=== PATIENT | male | born 1955 | race Caucasian/White ===

== ENCOUNTER 2022-03-29 19:12 | Emergency (ER) | payer MEDICAID ==
[2022-03-29] MEDS ORDERED: Aspirin Chewable 81 MG TAB ONE (19:39)
[2022-03-29 19:58] LABS: #Eosinphils 0.1 10x3/uL (0.0-0.5); #Monocytes 0.5 10x3/uL (0.0-1.1); #Neutrophils 3.6 10x3/uL (1.5-8.4); %Basophils 0.6 % (0.0-2.0); %Eosinophils 2.3 % (0.0-6.0); %Lymphocytes 29.4 % (18.0-47.0); %Monocytes 8.6 % (0.0-10.0); %Neutrophils 58.8 % (40.0-75.0); Hemoglobin 14.6 g/dL (13.5-17.5); Mean Corpuscular HGB CONC 34.8 g/dL (32.0-36.0); Mean Corpuscular Hemoglobin 30.8 pg (27.0-33.0); Mean Corpuscular Volume 88.4 fl (81.2-95.1); Mean Platelet Volume 8.3 fl (7.4-10.4); Platelet Count 268 10x3/uL (150-450); RBC Distribution Width 12.2 % (11.5-14.5); Red Blood Cell (RBC) Count 4.74 10x6/uL (4.32-5.72); White Blood Cell (WBC) Count 6.2 10x3/uL (3.5-10.5)
[2022-03-29 20:08] LABS: ALT (SGPT) 33 U/L (8-55); AST (SGOT) 20 U/L (5-34); Albumin 4.5 g/dL (3.4-4.8); Alkaline Phosphatase 62 U/L (40-110); Anion Gap 14 mmol/L (10-20); BUN (Urea Nitrogen) 20 mg/dL (8.4-25.7); Bilirubin, Total 0.4 mg/dL (0.2-1.2); Calc. Creatinine Clearance 0 mL/min (70-130); Calcium 9.3 mg/dL (7.8-10.44); Carbon Dioxide 23 mmol/L (23-31); Chloride 108 mmol/L (98-107); Estimated GFR 60; Globulin 3.1 g/dL (2.4-3.5); Glucose 96 mg/dL (80-115); Potassium 3.9 mmol/L (3.5-5.1); Protein, Total 7.6 g/dL (5.8-8.1); Sodium 141 mmol/L (136-145)
[2022-03-29 22:54] LABS: Troponin I Less than 0.010 ng/mL (< 0.028)
== END 2022-03-29 23:05 | disposition home or self-care (01) ==
LOC: CSHERS 19:12
DX: R07.9 Chest pain, unspecified (principal); E05.90 Thyrotoxicosis, unspecified without thyrotoxic crisis or storm; Z79.899 Other long term (current) drug therapy
CPT/HCPCS: 36415; 71045; 80053; 83880; 84484; 85025; 93005